=== PATIENT | female | born 1975 | race Caucasian/White ===

== ENCOUNTER 2019-12-26 10:32 | Outpatient (REF) | payer BC, SELFPAY ==
[2019-12-26 20:02] LABS: HCT 43.2 % (36.0-46.0); HGB 15.1 g/dL (12.0-15.5); Mean Corpuscular Hemoglobin 31.9 pg (27.0-33.0); Mean Corpuscular Volume 91.1 fL (80-95); Mean Platelet Volume 10.6 fL (8.0-11.0); Platelet Count 300 x1000/uL (130-400); RBC 4.74 m/cumm (4.00-5.20); RBC Distribution Width 12.6 % (11.7-14.6)
[2019-12-26 20:36] LABS: ALT 46 U/L (14-59); AST 27 U/L (15-37); Albumin 3.8 g/dL (3.4-5.0); Alkaline Phosphatase 56 U/L (46-116); BUN 14 mg/dL (7-18); Bilirubin, Total 0.5 mg/dL (0.2-1.0); CREATININE 0.94 mg/dL (0.55-1.02); Calcium 8.9 mg/dL (8.5-10.1); Chloride 105 mmol/L (98-107); Glucose 90 mg/dL (74-106); Potassium 4.1 mmol/L (3.5-5.1); Sodium 139 mmol/L (136-145); Total Protein 7.3 g/dL (6.4-8.2)
[2019-12-28 05:45] LABS: Vitamin D 25 Total 19.5 ng/ml (30-100)
== END 2019-12-26 10:52 ==
LOC: NCHCO 10:32
PROVIDERS: PCP Family Medicine; Visit Provider Family Medicine
DX: Z00.00 Encounter for general adult medical examination without abnormal findings (principal); F41.8 Other specified anxiety disorders; E66.9 Obesity, unspecified
CPT/HCPCS: 80053; 82306; 85027; 84443

== ENCOUNTER 2021-03-28 16:36 | Outpatient (REF) | payer OTHER, SELFPAY ==
--- NOTE | 2021-03-28 14:30 | PAPFT_PTH ---
PATIENT: Brie Contreras LOC: [facility]#:[id number] AGE/SX: 45/F ROOM: RE03/28/[address]: Alma Delia Cope : 1975 BED: DIS: 03/28/2021 SPEC #: [id number] RECD: 03/31/21 13:16 STATUS: MARICRUZ RECornell #: [id number] ERNESTO: 03/28/21 14:[address]: Alma Delia Cope DEPT[facility] Cytology RECD BY: Ashley Norris ENTERED: 03/31/21 13:16 SP TYPE: PAPFT OTHR DR: Miles Hernandez Tissues: 1 - CX/ENDOCX FOR PAP SMEARS Procedures: PAP THIN PREP/[facility] Screening HPV DNA PROBE Comments: [id number]
[2021-03-28 22:04] LABS: ALT 65 U/L (14-59); AST 35 U/L (15-37); Albumin 3.9 g/dL (3.4-5.0); Alkaline Phosphatase 68 U/L (46-116); Anion Gap 10.4 mmol/L (3-11); BUN 13 mg/dL (7-18); Bilirubin, Total 0.7 mg/dL (0.2-1.0); CO2 24.6 mmol/L (21.0-32.0); CREATININE 0.9 mg/dL (0.55-1.02); Calcium 9.1 mg/dL (8.5-10.1); Calculated LDL 143 mg/dL (<100); Chloride 105 mmol/L (98-107); Cholesterol 204 mg/dL (<200); Glucose 90 mg/dL (74-106); HDL Cholesterol 37 mg/dL (40-60); Potassium 4.2 mmol/L (3.5-5.1); Sodium 140 mmol/L (136-145); Total Protein 7.4 g/dL (6.4-8.2); Triglyceride 120 mg/dL (<150)
== END 2021-03-28 16:37 | disposition home or self-care (01) ==
LOC: NCHCN 16:36
PROVIDERS: PCP Family Medicine; Visit Provider Family Medicine
DX: Z00.00 Encounter for general adult medical examination without abnormal findings (principal); I10 Essential (primary) hypertension; E66.9 Obesity, unspecified; Z12.4 Encounter for screening for malignant neoplasm of cervix; Z11.51 Encounter for screening for human papillomavirus (HPV)
CPT/HCPCS: 80053; 80061; 88142; 87624

== ENCOUNTER 2023-04-02 15:35 | Outpatient (REF) | payer BC, SELFPAY ==
[2023-04-02 15:41] LABS: Calculated LDL 125 mg/dL (<100); Cholesterol 188 mg/dL (<200); HDL Cholesterol 37 mg/dL (40-60); Triglyceride 131 mg/dL (<150)
[2023-04-02 15:58] LABS: Hemoglobin A1C 4.8 % (<5.7)
== END 2023-04-02 15:36 | disposition home or self-care (01) ==
LOC: NCHCN 15:35
PROVIDERS: PCP Family Medicine; Visit Provider Family Medicine
DX: K76.0 Fatty (change of) liver, not elsewhere classified (principal); E66.9 Obesity, unspecified; E78.9 Disorder of lipoprotein metabolism, unspecified; I10 Essential (primary) hypertension; Z82.49 Family history of ischemic heart disease and other diseases of the circulatory system; Z13.1 Encounter for screening for diabetes mellitus
CPT/HCPCS: 80061; 83036

== ENCOUNTER 2024-01-06 16:08 | Outpatient (REF) | payer BC, SELFPAY ==
[2024-01-06 20:53] LABS: ALT 68 U/L (14-59); AST 39 U/L (15-37); Albumin 3.7 g/dL (3.4-5.0); Alkaline Phosphatase 69 U/L (46-116); Bilirubin, Direct 0.1 mg/dL (0.0-0.2); Bilirubin, Total 0.5 mg/dL (0.2-1.0); Total Protein 7.3 g/dL (6.4-8.2)
== END 2024-01-06 16:09 | disposition home or self-care (01) ==
LOC: NCHCN 16:08
PROVIDERS: PCP Family Medicine; Visit Provider Family Medicine
DX: I10 Essential (primary) hypertension (principal); K76.0 Fatty (change of) liver, not elsewhere classified; Z51.81 Encounter for therapeutic drug level monitoring
CPT/HCPCS: 80076